=== PATIENT | female | born 2000 | race Caucasian/White ===

== ENCOUNTER 2025-07-20 15:33 | Outpatient (CLI) | payer BC, SELFPAY ==
--- NOTE | 2025-07-20 16:00 | CRLHL7_ITS ---
For Patients: As a result of the Century Cures Act, medical imaging exams and procedure reports are released immediately into your electronic medical record. You may view this report before your referring provider. If you have questions, please contact your health care provider. OB ULTRASOUND FIRST TRIMESTER, TRANSVAGINAL INDICATION: Dating and viability. TECHNIQUE: Real time luis scale imaging of the fetus was performed. Transvaginal imaging performed. LMP: 05/21/2025. JAVI by LMP: 02/25/2026. GA: 8 w, 4 d. Previous US: No. CRL: 1.6 cm. 8 w 0 d. JAVI: 03/01/2026. FHR: 163 BPM. Gestational sac: 1.9 cm. Appears within normal limits. Yolk sac: 3.3 mm. Appears within normal limits. Right ovary: Within normal limits. 4.9 x 2.8 x 2.3 cm. CL. Left ovary: Within normal limits. 2.6 x 1.7 x 2.4 cm. IMPRESSION: 1. Single living intrauterine measures 8 weeks 0 days with sonographic due date 03/01/2026. 2. Mild incidental pelvic free fluid. 3. Corpus luteal cyst right ovary. Law Grande M.D. Diagnostic Radiologist [email or web address] SP/Dictated by: Law Grande MD @ 07/20/2025 7:07:00 PM (Electronically Signed)
== END 2025-07-20 15:34 | disposition home or self-care (01) ==
LOC: US 15:34
PROVIDERS: Visit Provider Registered Nurse
DX: O34.81 Maternal care for other abnormalities of pelvic organs, first trimester (principal); N83.11 Corpus luteum cyst of right ovary; Z3A.08 8 weeks gestation of pregnancy; Z34.91 Encounter for supervision of normal pregnancy, unspecified, first trimester
CPT/HCPCS: 76817

== ENCOUNTER 2025-07-20 16:52 | Outpatient (CLI) | payer BC, SELFPAY ==
[2025-07-20 22:13] LABS: Chlamydia DNA Amplified* NOT DETECTED (No Detected); GC DNA Amplified* NOT DETECTED (No Detected)
== END 2025-07-20 16:53 | disposition home or self-care (01) ==
PROVIDERS: Visit Provider Registered Nurse
DX: Z34.91 Encounter for supervision of normal pregnancy, unspecified, first trimester (principal); Z3A.08 8 weeks gestation of pregnancy
CPT/HCPCS: 83020; 83021; 85660; 86592; 86703; 86704; 86706; 86762; 86787; 86803; 86850; 86900; 86901; 87086; 87340; 87491; 87591